=== PATIENT | female | born 1995 | race Caucasian/White ===

== ENCOUNTER 2022-02-07 19:46 | Emergency (ER) | payer OTHER ==
[2022-02-07 19:58] VITALS: BP 107/74; PULSE 95; TEMP 98.3; BMI 30.2
[2022-02-07] MEDS ORDERED: ACETAMINOPHEN 500 MG TABLET (FP) PO ONE (21:12)
[2022-02-07] MEDS ORDERED: ACETAMINOPHEN 500 MG TABLET (FP) ONE (21:20)
== END 2022-02-07 22:18 | disposition home or self-care (01) ==
LOC: JERFT 19:46
DX: S92.354A Nondisplaced fracture of fifth metatarsal bone, right foot, initial encounter for closed fracture (principal); W10.1XXA Fall (on)(from) sidewalk curb, initial encounter
CPT/HCPCS: 73610-TC-RT-FY; 73630-TC-RT-FY; 99283-25